=== PATIENT | female | born 1950 | race Caucasian/White ===

== ENCOUNTER 2020-01-07 11:03 | Emergency (ER) | payer OTHER ==
[~2020-01-07] VITALS: Ht 160 cm; Wt 51.0 kg
[~2020-01-07 11:03] MED LIST: MECL-183 PO; ONDA4TAB11 PO
[2020-01-07] MEDS ORDERED: CHOL200077 PO (11:16)
[2020-01-07] MEDS ORDERED: BRIM.2 LEFTEYE (11:16)
[2020-01-07] MEDS ORDERED: CALC1TAB99 PO (11:16)
[2020-01-07] MEDS ORDERED: ACETAMINOPHEN 325MG TABLET PO STA (12:59)
[2020-01-07 14:14] LABS: CHLORIDE 104 mEq/L (98-107)
[2020-01-07 14:57] LABS: BASOPHILS % 0.7 % (0.0-2.0); EOSINOPHILS % 0.2 % (0.0-5.0); HEMOGLOBIN. 12.5 g/dL (12.0-16.0); LYMPHOCYTES % 16.4 % (20.0-50.0); MEAN CORPUSCULAR HEMOGLOBIN 30.8 pg (28.0-32.0); MEAN PLATELET VOLUME 10.3 fl (7.4-10.4); MONOCYTES % 10.3 % (2.0-8.0); NEUTROPHILS % 72.4 % (40.0-76.0); PLATELET 216 x1000/uL (130-400); RED BLOOD CELL COUNT 4.07 mill/uL (4.2-5.4)
[2020-01-07 15:49] LABS: CLARITY URINE CLEAR (CLEAR); COLOR URINE YELLOW (YELLOW); KETONES URINE TRACE (NEGATIVE); LEUKOCYTE ESTERASE URINE 2+ (NEGATIVE); NITRITE URINE NEGATIVE (NEGATIVE); OCCULT BLOOD URINE TRACE (NEGATIVE); PH URINE 6.5 (4.5-8.0); PROTEIN URINE NEGATIVE (NEGATIVE); SPECIFIC GRAVITY URINE 1.008 (1.005-1.030); UROBILINOGEN URINE 0.2 E.U./dL (0.2-1.0)
[2020-01-07] MEDS ORDERED: CEPHALEXIN 250MG CAPSULE PO ONE (17:00)
[2020-01-07 20:17] VITALS: BP 131/69
== END 2020-01-07 20:26 | disposition home or self-care (01) ==
LOC: ER 11:23
DX: M54.6 Pain in thoracic spine (principal); N39.0 Urinary tract infection, site not specified; Z20.828 Contact with and (suspected) exposure to other viral communicable diseases; Z98.890 Other specified postprocedural states
CPT/HCPCS: 36415; 71045; 76770; 80053; 81003; 83880; 84484; 85025; 87086; 87635; 99285; C9803

== ENCOUNTER 2020-03-12 15:49 | Emergency (ER) | payer OTHER ==
[~2020-03-12] VITALS: Ht 154.9 cm; Wt 61.0 kg
[~2020-03-12 15:49] MED LIST changes: +BRIM.2 LEFTEYE; +CALC1TAB99 PO; +CHOL200077 PO
[2020-03-12] MEDS ORDERED: TRAMADOL 50MG TABLET PO ONE (16:15)
[2020-03-12 17:45] VITALS: BP 150/78
== END 2020-03-12 17:45 | disposition home or self-care (01) ==
LOC: ER 15:49
DX: S62.001A Unspecified fracture of navicular [scaphoid] bone of right wrist, initial encounter for closed fracture (principal); S89.91XA Unspecified injury of right lower leg, initial encounter; I10 Essential (primary) hypertension; W01.0XXA Fall on same level from slipping, tripping and stumbling without subsequent striking against object, initial encounter; Y93.89 Activity, other specified; Y92.018 Other place in single-family (private) house as the place of occurrence of the external cause
CPT/HCPCS: 29125; 73110; 73562; 99284